=== PATIENT | male | born 1980 | race Caucasian/White ===

== ENCOUNTER 2018-01-05 10:55 | Emergency (ER) | payer OTHER ==
[~2018-01-05] VITALS: Ht 177.8 cm; Wt 236.0 kg
[~2018-01-05 10:55] MED LIST: ASPI325 PO; ASPI81CH PO; ASPI81EC PO; CLOP75 PO; COLC.6 PO; EFFIENT10 MG PO; HYDACE5 PO; Isosorbide Dini30 MG PO; LISI5 PO; METO50ER PO; Metoprolol Succ25 MG PO; Naprosyn500 MG PO; OXYACE5T PO; PENICILLIN V; ROSU10TA PO; ROSU5 PO; Toprol Xl25 MG PO; [UNRECOGNIZED DRUG - OTHER]
[2018-01-05 11:32] LABS: Source, Urine Clean Catch
[2018-01-05 11:35] LABS: Blood, Urine 1+ (Neg); Glucose Qualitative, Urine Neg (Neg); Ketones, Urine 1+ (Neg); Leukocyte Esterase, Urine 1+ (Neg); Nitrite, Urine Neg (Neg); Protein, Urine 1+ (Neg); Specific Gravity, Urine 1.025 (1.003-1.022); Urobilinogen, Urine 1+ (Normal)
[2018-01-05 11:43] LABS: BASOPHILS ABSOLUTE AUTO 0.04 K/mm3 (0.00-0.23); BASOPHILS PERCENT AUTO 1 % (0-2); EOSINOPHILS ABSOLUTE AUTO 0.09 K/mm3 (0.00-0.68); EOSINOPHILS PERCENT AUTO 1 % (0-6); Hematocrit 46.2 % (37.0-53.0); Hemoglobin 15.7 g/dL (13.5-17.5); IMMATURE GRAN ABSOLUTE AUTO 0.01 K/mm3 (0.00-0.10); IMMATURE GRAN PERCENT AUTO 0 % (0-1); LYMPHOCYTES ABSOLUTE AUTO 1.54 K/mm3 (0.84-5.20); LYMPHOCYTES PERCENT AUTO 22 % (21-46); MONOCYTES ABSOLUTE AUTO 0.42 K/mm3 (0.16-1.47); MONOCYTES PERCENT AUTO 6 % (4-13); Mean Corpuscular HGB 30.5 pg (26.0-34.0); Mean Corpuscular Volume 90 fL (80-100); Mean Platelet Volume 9.5 fL (9.1-12.4); NEUTROPHILS PERCENT AUTO 70 % (41-73); Platelet Count 253 K/mm3 (150-400); RDW Coefficient Variation 11.8 % (11.7-14.2); RDW Standard Deviation 38.7 fL (35.1-46.3); Red Blood Cell Count 5.15 M/mm3 (4.30-5.90)
[2018-01-05 11:43] LABS: Appearance, Urine Hazy (Clear); Bilirubin, Urine 1+ (Neg); Color, Urine Yellow (P-Yellow)
[2018-01-05 11:44] LABS: Bacteria Mod /hpf; Mucus Light (0-Heavy); Red Blood Cells, Urine 0-2 /hpf (0-2); Squamous Epithelial Cells Rare /hpf (Few); White Blood Cells, Urine 0-2 /hpf (0-5)
[2018-01-05 12:04] LABS: Troponin I <0.015 ng/mL (0.000-0.040)
[2018-01-05 12:07] LABS: Alanine Aminotransfer (ALT/SGP 32 U/L (12-78); Albumin, Blood 3.8 g/dL (3.4-5.0); Alk Phos 105 U/L (50-136); Anion Gap 9 mmol/L (6-16); Aspartate Aminotrans (AST/SGOT 14 U/L (12-37); Bilirubin, Total 0.4 mg/dL (0.1-1.0); Blood Urea Nitrogen 13 mg/dL (8-24); Bun/Creatinine Ratio 15.9 (12.0-20.0); CO2, Blood 21 mmol/L (21-32); Calcium, Blood 8.9 mg/dL (8.5-10.1); Chloride, Blood 109 mmol/L (98-108); Creatinine, Blood 0.82 mg/dL (0.60-1.20); Globulin, Blood 3.8 g/dL (2.2-4.0); Glomerular Filtration Rate >60 (60-); Glucose, Blood 122 mg/dL (70-99); Potassium, Blood 3.6 mmol/L (3.5-5.5); Sodium, Blood 139 mmol/L (136-145); Total Protein, Blood 7.6 g/dL (6.4-8.2)
== END 2018-01-05 13:25 | disposition home or self-care (01) ==
LOC: ER 10:55
PROVIDERS: Emergency Medicine
DX: R07.9 Chest pain, unspecified (principal); R06.00 Dyspnea, unspecified; I25.2 Old myocardial infarction; E78.00 Pure hypercholesterolemia, unspecified; Z79.82 Long term (current) use of aspirin; Z79.899 Other long term (current) drug therapy
CPT/HCPCS: 36415; 71046; 80053; 81001; 83880; 84484; 85025; 87086; 93005; 93010; 99284

== ENCOUNTER 2018-11-24 13:10 | Emergency (ER) | payer OTHER ==
[~2018-11-24] VITALS: Ht 177.8 cm; Wt 104.3 kg
[2018-11-24 13:54] LABS: BASOPHILS ABSOLUTE AUTO 0.03 K/mm3 (0.00-0.23); BASOPHILS PERCENT AUTO 0 % (0-2); EOSINOPHILS ABSOLUTE AUTO 0.18 K/mm3 (0.00-0.68); EOSINOPHILS PERCENT AUTO 2 % (0-6); Hematocrit 48.3 % (37.0-53.0); Hemoglobin 16.1 g/dL (13.5-17.5); IMMATURE GRAN ABSOLUTE AUTO 0.02 K/mm3 (0.00-0.10); IMMATURE GRAN PERCENT AUTO 0 % (0-1); LYMPHOCYTES ABSOLUTE AUTO 1.82 K/mm3 (0.84-5.20); LYMPHOCYTES PERCENT AUTO 25 % (21-46); MONOCYTES ABSOLUTE AUTO 0.48 K/mm3 (0.16-1.47); MONOCYTES PERCENT AUTO 7 % (4-13); Mean Corpuscular HGB Conc 33.3 g/dL (31.5-36.5); Mean Corpuscular Volume 90 fL (80-100); Mean Platelet Volume 9.6 fL (9.1-12.4); NEUTROPHILS ABSOLUTE AUTO 4.87 K/mm3 (1.96-9.15); NEUTROPHILS PERCENT AUTO 66 % (41-73); Platelet Count 260 K/mm3 (150-400); RDW Coefficient Variation 12.3 % (11.7-14.2); RDW Standard Deviation 40.1 fL (35.1-46.3); Red Blood Cell Count 5.36 M/mm3 (4.30-5.90)
[2018-11-24 14:23] LABS: Troponin I <0.015 ng/mL (0.000-0.040)
[2018-11-24 14:27] LABS: Alanine Aminotransfer (ALT/SGP 36 U/L (12-78); Albumin, Blood 3.9 g/dL (3.4-5.0); Alk Phos 121 U/L (50-136); Anion Gap 8 mmol/L (6-16); Aspartate Aminotrans (AST/SGOT 15 U/L (12-37); Bilirubin, Total 0.4 mg/dL (0.1-1.0); Blood Urea Nitrogen 11 mg/dL (8-24); Bun/Creatinine Ratio 11.5 (12.0-20.0); CO2, Blood 25 mmol/L (21-32); Calcium, Blood 9.2 mg/dL (8.5-10.1); Chloride, Blood 107 mmol/L (98-108); Creatinine, Blood 0.96 mg/dL (0.60-1.20); Globulin, Blood 4.1 g/dL (2.2-4.0); Glomerular Filtration Rate >60 (60-); Glucose, Blood 95 mg/dL (70-99); Potassium, Blood 3.9 mmol/L (3.5-5.5); Sodium, Blood 140 mmol/L (136-145)
== END 2018-11-24 16:30 | disposition home or self-care (01) ==
LOC: ER 13:10
PROVIDERS: Physician Assistant
DX: R07.2 Precordial pain (principal); F41.9 Anxiety disorder, unspecified; K21.9 Gastro-esophageal reflux disease without esophagitis; E78.5 Hyperlipidemia, unspecified; I25.10 Atherosclerotic heart disease of native coronary artery without angina pectoris; I25.2 Old myocardial infarction; Z79.82 Long term (current) use of aspirin; Z79.899 Other long term (current) drug therapy; Z87.891 Personal history of nicotine dependence
CPT/HCPCS: 36415; 71046; 80053; 84484; 85025; 93005; 93010; 99285-25

== ENCOUNTER 2024-04-27 15:02 | Emergency (ER) | payer OTHER ==
[~2024-04-27] VITALS: Ht 177.8 cm; Wt 90.7 kg
[~2024-04-27 15:02] MED LIST changes: +ONDA4ODT MM
[2024-04-27] MEDS ORDERED: Ondansetron HCl 2 MG / ML 2ML Vial IV ONE ×2 (15:30→19:40)
[2024-04-27 15:49] LABS: BASOPHILS ABSOLUTE AUTO 0.02 K/mm3 (0.00-0.23); BASOPHILS PERCENT AUTO 0 % (0-2); EOSINOPHILS PERCENT AUTO 0 % (0-6); Hematocrit 28.9 % (37.0-53.0); Hemoglobin 8.3 g/dL (13.5-17.5); IMMATURE GRAN ABSOLUTE AUTO 0.05 K/mm3 (0.00-0.10); IMMATURE GRAN PERCENT AUTO 0 % (0-1); LYMPHOCYTES ABSOLUTE AUTO 1.72 K/mm3 (0.84-5.20); LYMPHOCYTES PERCENT AUTO 12 % (21-46); MONOCYTES ABSOLUTE AUTO 1.34 K/mm3 (0.16-1.47); MONOCYTES PERCENT AUTO 9 % (4-13); Mean Corpuscular HGB 21.4 pg (26.0-34.0); Mean Corpuscular HGB Conc 28.7 g/dL (31.5-36.5); Mean Corpuscular Volume 75 fL (80-100); Mean Platelet Volume 9.5 fL (9.1-12.4); NEUTROPHILS ABSOLUTE AUTO 11.65 K/mm3 (1.96-9.15); NEUTROPHILS PERCENT AUTO 79 % (41-73); Platelet Count 447 K/mm3 (150-400); RDW Coefficient Variation 17.2 % (11.7-14.2); RDW Standard Deviation 45.9 fL (35.1-46.3); Red Blood Cell Count 3.87 M/mm3 (4.30-5.90); White Blood Cell Count 14.78 K/mm3 (4.00-11.30)
[2024-04-27 16:10] LABS: Albumin, Blood 3.3 g/dL (3.4-5.0); Albumin/Globulin Ratio 0.8 (0.8-1.8); Bilirubin, Total 0.5 mg/dL (0.1-1.0); Bun/Creatinine Ratio 15.3 (12.0-20.0); Calcium, Blood 8.9 mg/dL (8.5-10.1); Creatinine, Blood 0.79 mg/dL (0.60-1.20); Potassium, Blood 3.2 mmol/L (3.5-5.5); Total Protein, Blood 7.3 g/dL (6.4-8.2)
[2024-04-27 17:26] LABS: Chloride (POC) 100 mmol/L (98-108); Creatinine (POC) 0.8 mg/dL (0.8-1.3); Glucose (ISTAT POC) 111 mg/dL (70-99); Hemoglobin (POC) 9.2 g/dL (13.5-17.5); Potassium (POC) 3.1 mmol/L (3.5-5.5); Sodium (POC) 139 mmol/L (135-148); Total CO2 (POC) 24 mmol/L (21-32)
[2024-04-27] MEDS ORDERED: Potassium Chloride 20 MEQ TabCR PO ONE (18:10)
[2024-04-27] MEDS ORDERED: Lactated Ringer's 1,000 ML IV ONE (18:10)
[2024-04-27 18:32] LABS: International Normalized Ratio 1.13
[2024-04-27] MEDS ORDERED: Sod Ferric Gluc Complx/Sucrose 125 MG in NS 100 ML IV ONE (20:45)
[2024-04-27] MEDS ORDERED: ONDA4ODT MM (21:32)
[2024-04-27 22:00] VITALS: BP 117/89
== END 2024-04-27 22:05 | disposition home or self-care (01) ==
LOC: ER 15:02
PROVIDERS: Physician Assistant
DX: R10.13 Epigastric pain (principal); R11.2 Nausea with vomiting, unspecified; E87.6 Hypokalemia; D50.9 Iron deficiency anemia, unspecified; E78.5 Hyperlipidemia, unspecified; I25.10 Atherosclerotic heart disease of native coronary artery without angina pectoris; I25.2 Old myocardial infarction; F84.0 Autistic disorder; Z79.82 Long term (current) use of aspirin; Z79.899 Other long term (current) drug therapy
CPT/HCPCS: 74177; 80047; 80053; 83540; 83550; 83605; 83690; 85014; 85025; 85610; 85730; 96361; 96365-59; 96375; 96376; 99284-25; A9270; J2405; J2916; J7120; Q9967

== ENCOUNTER 2024-06-29 08:40 | Emergency (ER) | payer OTHER ==
[~2024-06-29] VITALS: Ht 177.8 cm; Wt 102.1 kg
[2024-06-29 09:29] LABS: BASOPHILS ABSOLUTE AUTO 0.04 K/mm3 (0.00-0.23); BASOPHILS PERCENT AUTO 0 % (0-2); EOSINOPHILS PERCENT AUTO 0 % (0-6); Hematocrit 30.9 % (37.0-53.0); Hemoglobin 8.4 g/dL (13.5-17.5); IMMATURE GRAN ABSOLUTE AUTO 0.12 K/mm3 (0.00-0.10); IMMATURE GRAN PERCENT AUTO 1 % (0-1); LYMPHOCYTES ABSOLUTE AUTO 2.11 K/mm3 (0.84-5.20); LYMPHOCYTES PERCENT AUTO 10 % (21-46); MONOCYTES ABSOLUTE AUTO 1.51 K/mm3 (0.16-1.47); MONOCYTES PERCENT AUTO 7 % (4-13); Mean Corpuscular HGB 19.7 pg (26.0-34.0); Mean Corpuscular HGB Conc 27.2 g/dL (31.5-36.5); Mean Corpuscular Volume 73 fL (80-100); Mean Platelet Volume 9.8 fL (9.1-12.4); NEUTROPHILS PERCENT AUTO 82 % (41-73); Platelet Count 490 K/mm3 (150-400); RDW Coefficient Variation 18.7 % (11.7-14.2); RDW Standard Deviation 48.5 fL (35.1-46.3); Red Blood Cell Count 4.26 M/mm3 (4.30-5.90); White Blood Cell Count 20.78 K/mm3 (4.00-11.30)
[2024-06-29] MEDS ORDERED: Pantoprazole Sodium 40 MG Injection IV ONE (09:30)
[2024-06-29] MEDS ORDERED: Ondansetron HCl 2 MG / ML 2ML Vial IV ONE (09:30)
[2024-06-29] MEDS ORDERED: Droperidol 5 mg/2 ml Vial IV ONE (09:35)
[2024-06-29] MEDS ORDERED: ARIPIPRAZOLE15 M3 PO (09:50)
[2024-06-29] MEDS ORDERED: DESVENLAFAXINE50 M3 PO (09:51)
[2024-06-29] MEDS ORDERED: BUSPIRONE HCL10 M6 PO (09:51)
[2024-06-29] MEDS ORDERED: ROSUVASTATIN CA40 MG PO (09:51)
[2024-06-29] MEDS ORDERED: PLAVIX75 MG PO (09:51)
[2024-06-29] MEDS ORDERED: EZETIMIBE10 M6 PO (09:51)
[2024-06-29] MEDS ORDERED: CARVEDILOL25 M9 PO (09:51)
[2024-06-29 09:53] LABS: Albumin, Blood 3.2 g/dL (3.4-5.0); Albumin/Globulin Ratio 0.9 (0.8-1.8); Bilirubin, Total 0.5 mg/dL (0.1-1.0); Bun/Creatinine Ratio 37.4 (12.0-20.0); Calcium, Blood 9.1 mg/dL (8.5-10.1); Creatinine, Blood 0.94 mg/dL (0.60-1.20); Globulin, Blood 3.6 g/dL (2.2-4.0); Magnesium, Blood 1.5 mg/dL (1.6-2.4); Potassium, Blood 3.7 mmol/L (3.5-5.5); Total Protein, Blood 6.8 g/dL (6.4-8.2)
[2024-06-29 09:56] LABS: International Normalized Ratio 1.29; Prothrombin Time Results 13.5 Sec (9.7-11.5)
[2024-06-29] MEDS ORDERED: NS 1,000 ML IV SCH ×2 (10:10→11:15)
[2024-06-29] MEDS ORDERED: Magnesium Sulf 2 GM/Water 50ML 50 ML IV ONE (11:00)
[2024-06-29] MEDS ORDERED: Mag Hydrox/AL Hydrox/Simeth 30 ML UDC PO ONE (12:00)
[2024-06-29] MEDS ORDERED: Aspirin 325 MG Tab PO ONE (12:25)
[2024-06-29 15:25] VITALS: BP 118/72
== END 2024-06-29 15:45 | disposition left against medical advice (07) ==
LOC: ER 08:40
PROVIDERS: Student in an Organized Health Care Education/Training Program
DX: R11.2 Nausea with vomiting, unspecified (principal); F12.90 Cannabis use, unspecified, uncomplicated; R79.89 Other specified abnormal findings of blood chemistry; E83.42 Hypomagnesemia; R00.0 Tachycardia, unspecified; K21.9 Gastro-esophageal reflux disease without esophagitis; E78.5 Hyperlipidemia, unspecified; Z79.82 Long term (current) use of aspirin; Z79.899 Other long term (current) drug therapy
CPT/HCPCS: 71046; 80053; 82010; 83690; 83735; 84484; 85025; 85610; 85730; 93005; 93010; 96361; 96365; 96366; 96375; 99285-25; A9270; G0378; J1790; J2405; J2470; J3475; J7030

== ENCOUNTER 2024-07-20 11:37 | Inpatient (IN) | payer OTHER ==
[~2024-07-20] VITALS: Ht 177.8 cm; Wt 63.4 kg
[~2024-07-20 11:37] MED LIST changes: +ARIPIPRAZOLE15 M3 PO; +BUSPIRONE HCL10 M6 PO; +CARVEDILOL25 M9 PO; +DESVENLAFAXINE50 M3 PO; +EZETIMIBE10 M6 PO; +PLAVIX75 MG PO; +ROSUVASTATIN CA40 MG PO
[2024-07-20 12:30] LABS: Albumin, Blood 2.9 g/dL (3.4-5.0); Albumin/Globulin Ratio 0.7 (0.8-1.8); Bilirubin, Total 0.5 mg/dL (0.1-1.0); Bun/Creatinine Ratio 14.4 (12.0-20.0); Calcium, Blood 8.8 mg/dL (8.5-10.1); Creatinine, Blood 0.63 mg/dL (0.60-1.20); Globulin, Blood 3.9 g/dL (2.2-4.0); Potassium, Blood 4.9 mmol/L (3.5-5.5); Total Protein, Blood 6.8 g/dL (6.4-8.2)
[2024-07-20 12:37] LABS: BASOPHILS ABSOLUTE AUTO 0.03 K/mm3 (0.00-0.23); BASOPHILS PERCENT AUTO 0 % (0-2); EOSINOPHILS ABSOLUTE AUTO 0.02 K/mm3 (0.00-0.68); EOSINOPHILS PERCENT AUTO 0 % (0-6); Hematocrit 25.8 % (37.0-53.0); Hemoglobin 6.7 g/dL (13.5-17.5); IMMATURE GRAN ABSOLUTE AUTO 0.04 K/mm3 (0.00-0.10); IMMATURE GRAN PERCENT AUTO 0 % (0-1); LYMPHOCYTES PERCENT AUTO 14 % (21-46); MONOCYTES ABSOLUTE AUTO 0.46 K/mm3 (0.16-1.47); MONOCYTES PERCENT AUTO 4 % (4-13); Mean Corpuscular HGB 18.7 pg (26.0-34.0); Mean Corpuscular Volume 72 fL (80-100); Mean Platelet Volume 10.7 fL (9.1-12.4); NEUTROPHILS ABSOLUTE AUTO 8.52 K/mm3 (1.96-9.15); NEUTROPHILS PERCENT AUTO 81 % (41-73); Platelet Count 584 K/mm3 (150-400); RDW Coefficient Variation 18.9 % (11.7-14.2); RDW Standard Deviation 49.2 fL (35.1-46.3); Red Blood Cell Count 3.59 M/mm3 (4.30-5.90); White Blood Cell Count 10.57 K/mm3 (4.00-11.30)
[2024-07-20] MEDS ORDERED: Ondansetron HCl 2 MG / ML 2ML Vial IV ONE (13:00)
[2024-07-20] MEDS ORDERED: Morphine Sulfate 4 MG/1 ML Injection IV ONE ×2 (13:05→16:20)
[2024-07-20] MEDS ORDERED: Pantoprazole Sodium 40 MG Injection IV ONE (13:05)
[2024-07-20] MEDS ORDERED: NS 1,000 ML IV SCH (13:05)
[2024-07-20] MEDS ORDERED: FLU VACC TS2024-25(6MOS UP)/PF 45 MCG/0.5 ML SYRINGE IM SCH (16:55)
[2024-07-20] MEDS ORDERED: Ondansetron HCl 2 MG / ML 2ML Vial IV PRN (17:10)
[2024-07-20 18:07] VITALS: BP 138/93
--- NOTE | 2024-07-20 18:36 | NUR ---
PATIENT FROM THE ER LATE THIS AFTERNOON. HE IS AO X 4 ON ARRIVAL. PRBC X 1 UNIT INFUSING ON ARRIVAL. PAITENT IN STREET CLOTHES. DECISION MOJGANOT DRESS OUT IN HOSPITAL GOWN UNTIL BLOOD DONE INFUSING. VITAL SIGNS ARE STABLE AND WNL. HE IS NOT FEBRILE. HGB IS ORDERED AND WILL BE DONE WHEN BLOOD FINISHED. PER REPORT PATIENT STAERTED HAVING PAIN X 1 DAY AGO. HE FELT LIKE IT WAS THE SAME KIND OF PAIN WHEN HE REQUIRED STENTS. HE CAME TO ER TODAY AFTER HE STARTED VOMITTING AND PER PATIENT HE NOTED IT WAS BLOODY. NO EMESIS SINCE ARRIVAL TO MED FLOOR. HIS LUNGS ARE CLEAR AND NO SKIN ISSUES ARE NOTED. WILL REMAIN AVAILABLE FOR THIS PATIENT FOR ANY WANTS UNTIL REPORT AND HAND OFF TO NOC SHIFT RN.
[2024-07-20 19:45] VITALS: BP 113/99
[2024-07-20 20:30] LABS: Hematocrit 27.6 % (37.0-53.0); Hemoglobin 7.7 g/dL (13.5-17.5)
[2024-07-20 20:46] LABS: International Normalized Ratio 1.07; Prothrombin Time Results 11.4 Sec (9.7-11.5)
[2024-07-20] MEDS ORDERED: BusPIRone HCl 10 MG Tab PO SCH (21:00)
--- NOTE | 2024-07-20 23:34 | NUR ---
PT STATUS PT REQUESTS A SHOWER HE STATES IT IS THE ONLY THING THAT HELPS HIM FEEL BETTER. HE IS REFUSING NAUSEA MEDS AT THIS TIME. I HAVE WRAPPED AND PROTECTED HIS IV FOR NOW.
[2024-07-21 03:18] VITALS: BP 114/82
--- NOTE | 2024-07-21 03:52 | NUR ---
CALLED HOSPITALIST PT IN HIS ROOM CRYING OUT IN PAIN. NO PAIN MEDICATION IN EMAR. CALLED HOSPITALIST. NEW MEDICATION ORDER IN EMAR.
[2024-07-21] MEDS ORDERED: FentaNYL Citrate 50 MCG/ML 2 ML Injection IV PRN (03:55)
--- NOTE | 2024-07-21 04:27 | NUR ---
SHIFT SUMMARY ADMITTED FOR GI BLEED. FULL CODE. HE HAS BEEN NAUSEOUS THIS SHIFT. MEDICATION GIVEN FOR PAIN AND NAUSEA. HE IS NPO. TELEMETRY: NSR @ 90 BPM. HOSPITALIST NOTIFIED OF 2ND DEGREE HB FOR ONE BEAT - PER SWATCH CLERK. HE IS INDEPENDENT IN ROOM. ON RA. MX H&H AND OTHER LABS. 1 U OF PRBC'S GIVEN ON PREVIOUS SHIFT. HE IS A&O X4. 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
[2024-07-21 04:33] LABS: Hematocrit 26.3 % (37.0-53.0); Hemoglobin 7.4 g/dL (13.5-17.5)
[2024-07-21] MEDS ORDERED: Pantoprazole Sodium 40 MG Injection IV SCH (06:00)
[2024-07-21 07:26] LABS: BASOPHILS ABSOLUTE AUTO 0.03 K/mm3 (0.00-0.23); BASOPHILS PERCENT AUTO 0 % (0-2); EOSINOPHILS PERCENT AUTO 0 % (0-6); Hemoglobin 7.4 g/dL (13.5-17.5); IMMATURE GRAN ABSOLUTE AUTO 0.05 K/mm3 (0.00-0.10); IMMATURE GRAN PERCENT AUTO 0 % (0-1); LYMPHOCYTES ABSOLUTE AUTO 1.77 K/mm3 (0.84-5.20); LYMPHOCYTES PERCENT AUTO 15 % (21-46); MONOCYTES ABSOLUTE AUTO 0.61 K/mm3 (0.16-1.47); MONOCYTES PERCENT AUTO 5 % (4-13); Mean Corpuscular HGB 20.3 pg (26.0-34.0); Mean Corpuscular HGB Conc 27.4 g/dL (31.5-36.5); Mean Corpuscular Volume 74 fL (80-100); Mean Platelet Volume 10.6 fL (9.1-12.4); NEUTROPHILS ABSOLUTE AUTO 9.61 K/mm3 (1.96-9.15); NEUTROPHILS PERCENT AUTO 80 % (41-73); Platelet Count 540 K/mm3 (150-400); RDW Coefficient Variation 20.1 % (11.7-14.2); RDW Standard Deviation 53.7 fL (35.1-46.3); Red Blood Cell Count 3.65 M/mm3 (4.30-5.90); White Blood Cell Count 12.07 K/mm3 (4.00-11.30)
[2024-07-21 07:35] VITALS: BP 126/89
[2024-07-21 07:46] LABS: Bun/Creatinine Ratio 9.3 (12.0-20.0); Calcium, Blood 8.5 mg/dL (8.5-10.1); Creatinine, Blood 0.75 mg/dL (0.60-1.20); Potassium, Blood 3.8 mmol/L (3.5-5.5)
[2024-07-21] MEDS ORDERED: Carvedilol 6.25 MG Tab PO SCH (08:00)
[2024-07-21] MEDS ORDERED: Rosuvastatin Calcium 10 MG Tab PO SCH ×2 (09:00→21:00)
[2024-07-21] MEDS ORDERED: ARIPiprazole 5 MG Tab PO SCH ×2 (09:00→21:00)
[2024-07-21] MEDS ORDERED: Ezetimibe 10 MG Tab PO SCH ×2 (09:00→21:00)
[2024-07-21] MEDS ORDERED: Venlafaxine HCl 75 MG CapCR PO SCH ×2 (09:00→21:00)
--- NOTE | 2024-07-21 09:50 | NUR ---
PT REMOVED TELE BOX PT STATED THAT HE WOULD NOT PUT IT BACK ON UNTIL HE KNOWS THE PLAN OF CARE. DR. GONZALEZ SPOKE WITH PT THIS MORNING. PT IS UPSET AND WANTS TO EAT AND DRINK. PT ADVISED THAT THE PROCEDURE COULD HAPPEN ANY TIME IT IS NOT SCHEDULED. PT STATED THAT HE IS VERY UNHAPPY AND WANTS TO TALK TO DR. HE STATED THAT HE IS TIRED OF WAITING AND WILL LEAVE IF THE PROCEDURE IS STARTED IMMEDIATELY. PT STATES THAT HE WANTS TO HEAR THE INFORMATION FROM . NOT THE RN. DR AQUINO NOTIFIED AND WILL COME SEE THE PT AT BEDSIDE.
[2024-07-21] MEDS ORDERED: D5W-NS 1,000 ML IV SCH (11:20)
--- NOTE | 2024-07-21 12:07 | NUR ---
SHIFT ASSESMENT FROZEN, UNABLE TO COMPLETE. PT DENIES CHEST PAIN OR PRESSURE, ABLE TO MAKE NEEDS KNOWN
[2024-07-21 13:48] LABS: Hematocrit 25.6 % (37.0-53.0); Hemoglobin 7.2 g/dL (13.5-17.5)
[2024-07-21] MEDS ORDERED: FERROUS GLUCON324 M7 PO (14:04)
[2024-07-21] MEDS ORDERED: Lactated Ringer's 1,000 ML IV SCH (14:55)
[2024-07-21] MEDS ORDERED: Lidocaine HCl 4% 5 ML SDA ONE (15:19)
[2024-07-21] MEDS ORDERED: propofoL 40 ML IV ONE (15:19)
--- NOTE | 2024-07-21 15:22 | NUR ---
PT TO [facility]IA [facility] FROM ROOM [address] GONZALEZ. CHART REVIEWED. PLAN OF CARE DISCUSSED WITH PT; QUESTIONS ANSWERED. PT STATES NO FOOD SINCE FRIDAY. SIP OF WATER WITH PILLS TODAY.
[2024-07-21 15:24] VITALS: BP 127/82
--- NOTE | 2024-07-21 15:31 | NUR ---
PT TO SDS WITH 20G IV IN LEFT HAND
--- NOTE | 2024-07-21 15:47 | NUR ---
07/21/24 1547 Mariza Palm 1541 History, Chart, Medications and Allergies reviewed before start of procedure.MONITOR INTACT WITH CONTINUOUS PULSE OXIMETRY, CONTINUOUS END TITAL CO2, AND INTERMITTENT BLOOD PRESSURE.3-LEAD EKG REVIEWED WITH PHYSICIAN PRIOR TO START OF PROCEDURE.O2 VIA POM INTACT THROUGHOUT SEDATION/PROCEDURE. LIDO 4% USED FOR NUMBING BY . Bite Block Placed-SEE ANESTHESIA RECORD.
[2024-07-21] MEDS ORDERED: Midazolam HCl 1MG / ML 2ML Vial ONE (15:48)
--- NOTE | 2024-07-21 16:00 | NUR ---
LIDO 4% USED BY DR. NAILS FOR NUMBING THE THROAT PRIOR TO EGD. RN MADE AWARE TO CHECK PT GAG REFLEX PRIOR TO ALLOWING PO INTAKE.
[2024-07-21] MEDS ORDERED: Prochlorperazine Edisylate 10 mg Vial IV PRN (16:10)
[2024-07-21 16:20] VITALS: BP 102/80
--- NOTE | 2024-07-21 17:01 | NUR ---
PT IS BACK FROM EGD, PER REPORT, TOLORATED WELL. INFORMED PT HE HAS BEEN ORDERED A CLEAR LIQUID DIET. PT STATES HE WILL HAVE SOME SOLID FOOD "NO MATTER WHAT ANYONE SAYS" HE STATED THAT HE WILL HAVE SOMEONE BRING IN FOOD IF THAT IS WHAT HE HAS TO DO. PT ALSO STATED THAT HE WILL NOT WAIT UNTIL TOMORROW TO FIND OUT RESULTS, HE WILL LEAVE. GAG REFLEX PRESENT POST PROCEDURE. ALERT AND ORIENTED, PER PT FEELING A LITTLE GROGGY. INDEPENDENT IN THE ROOM, ABLE TO MAKE NEEDS KNOWN. R/A. NORMAL SINUS ON TELE.
[2024-07-21 17:16] VITALS: BP 126/82
--- NOTE | 2024-07-21 17:45 | NUR ---
DR. AQUINO NOTIFIED OF PT DEMAND TO EAT SOLID FOOD.
--- NOTE | 2024-07-21 18:05 | NUR ---
PT REFUSED COREG.
--- NOTE | 2024-07-21 18:31 | NUR ---
OFFERED CLEAR LIQUID DIET TRAY AGAIN TO PT. PT REFUSED AND STATED THAT HE HAS SOMEONE BRINGING IN FOOD FOR HIM. EDUCATED PT AGAIN AND ADVISED AGAINST SOLID FOOD RECOMMEDED BY HOSPITALIST DR. AQUINO AND SPECIALIST DR. GONZALEZ. PT STATED THAT HE DOES CARE. HE WILL BE EATING SOLID FOOD.
--- NOTE | 2024-07-21 18:39 | NUR ---
PT IS EATING SOLID FOOD BROUGHT IN BY VISITOR, THIS IS AGAINST MEDICAL ADVICE FROM HOSPITALIST AND SPECIALIST. PT VERBALIZED UNDERSTANDING BUT DECLINES TO FOLLOW MEDICAL ADVICE.
[2024-07-21 19:23] VITALS: BP 120/77
--- NOTE | 2024-07-21 20:54 | NUR ---
PT STATUS PT IS REFUSING CARE UNTIL 7 AM. HE STATES HE HAS NOT SLEPT SINCE FRIDAY AND HE NEEDS HIS SLEEP. HE STATED THIS IN FRONT OF HIS MOTHER WHO WAS IN THE ROOM AT BEDSIDE. HE REFUSED MEDS AND LABS.
--- NOTE | 2024-07-21 23:32 | NUR ---
PT STATUS TELEMETRY CALLED AND STATED THE PT'S BATTERIES HAD BEEN REMOVED. I ENTERED THE ROOM AND FOUND THE TELEMETRY ON THE FLOOR WITH THE BATTERY COVER OFF AND THE BATTERIES SCATTERED. I ASKED THE PT WHAT HAPPENED AND HE STATED, "I TOOK IT OFF FOR A REASON, I DON'T WANT TO WEAR IT ANYMORE." I CALLED THE HOSPITALIST AND INFORMED HIM THAT THE PT IS REFUSING TO WEAR TELEMETRY.
--- NOTE | 2024-07-22 04:15 | NUR ---
SHIFT SUMMARY ADMITTED FOR GI BLEED, N/V. FULL CODE. EGD SCOPE PERFORMED ON PREVIOUS SHIFT. CLEAR LIQUID DIET - PT IS NONCOMPLIANT. PT HAS REFUSED VITALS, LABS, AND MEDICATIONS THIS SHIFT. HE REMOVED HIS TELEMETRY THIS SHIFT AND REFUSED TO WEAR IT AGAIN. ON RA, INDEPENDENT. DR. GONZALEZ PERFORMED THE SCOPE.
[2024-07-22 07:31] VITALS: BP 114/77
--- NOTE | 2024-07-22 08:49 | NUR ---
PT REFUSED ASSESMENT. DID REPORT SOME EPIGASTRIC PAIN BUT REFUSED PAIN MEDICATIONS. PT EATING SOLID FOOD AGAINST MEDICAL ADVICE. THIS RN ASKED IF THERE WAS ANYTHING I COULD DO FOR HIM. PT STATED "UNFORTUNATELY NOT" DR. GONZALEZ AT BEDSIDE TALKING WITH PT THIS MORINING.
[2024-07-22] MEDS ORDERED: PANT40 PO (12:30)
--- NOTE | 2024-07-22 12:54 | NUR ---
PT DISCHARGED HOME. DISCUSSED DISCHARGE INSTRUCTIONS WITH PT. EMPHASIZED IMPORTANCE OF LIQUID DIET FOR 48 HOURS, AND NOT BLOOD THINNERS FOR 48 HOURS. PT VERBALIZED UNDERSTANDING.
== END 2024-07-22 12:53 | disposition home or self-care (01) | DRG 369 ==
LOC: ER 11:37 → MEDS 16:53
PROVIDERS: Internal Medicine; Physician Assistant; Student in an Organized Health Care Education/Training Program; ADMIT Internal Medicine
PROC: 30233N1 Transfusion of Nonautologous Red Blood Cells into Peripheral Vein, Percutaneous Approach (ICD-10-PCS; principal; 2024-07-20)
PROC: 0DJ08ZZ Inspection of Upper Intestinal Tract, Via Natural or Artificial Opening Endoscopic (ICD-10-PCS; 2024-07-21)
DX: K22.6 Gastro-esophageal laceration-hemorrhage syndrome (principal); D62 Acute posthemorrhagic anemia; K21.9 Gastro-esophageal reflux disease without esophagitis; E78.5 Hyperlipidemia, unspecified; K22.11 Ulcer of esophagus with bleeding; R07.89 Other chest pain; F41.8 Other specified anxiety disorders; F25.9 Schizoaffective disorder, unspecified; G47.33 Obstructive sleep apnea (adult) (pediatric); I25.10 Atherosclerotic heart disease of native coronary artery without angina pectoris; Z91.148 Patient's other noncompliance with medication regimen for other reason; I25.2 Old myocardial infarction; Z98.890 Other specified postprocedural states; Z88.8 Allergy status to other drugs, medicaments and biological substances; Z79.02 Long term (current) use of antithrombotics/antiplatelets; Z79.82 Long term (current) use of aspirin; Z79.899 Other long term (current) drug therapy
CPT/HCPCS: 36415; 36430; 71046; 74177; 80048; 80053; 82272; 83690; 83880; 84484; 85014; 85018; 85025; 85379; 85610; 85730; 86850; 86900; 86901; 86923; 93005; 93010; 96361; 96374-59; 96375; 96376; 99285-25; J2001; J2250; J2270; J2405; J2470; J2704; J3010; J7042; J7120; P9016; Q9967

== ENCOUNTER 2024-08-27 21:58 | Emergency (ER) | payer OTHER ==
[~2024-08-27] VITALS: Ht 177.8 cm; Wt 88.0 kg
[~2024-08-27 21:58] MED LIST changes: +FERROUS GLUCON324 M7 PO; +PANT40 PO
[2024-08-27 23:23] LABS: BASOPHILS ABSOLUTE AUTO 0.03 K/mm3 (0.00-0.23); BASOPHILS PERCENT AUTO 0 % (0-2); EOSINOPHILS ABSOLUTE AUTO 0.01 K/mm3 (0.00-0.68); EOSINOPHILS PERCENT AUTO 0 % (0-6); Hematocrit 27.8 % (37.0-53.0); Hemoglobin 7.7 g/dL (13.5-17.5); IMMATURE GRAN ABSOLUTE AUTO 0.03 K/mm3 (0.00-0.10); IMMATURE GRAN PERCENT AUTO 0 % (0-1); LYMPHOCYTES ABSOLUTE AUTO 1.27 K/mm3 (0.84-5.20); LYMPHOCYTES PERCENT AUTO 13 % (21-46); MONOCYTES ABSOLUTE AUTO 0.89 K/mm3 (0.16-1.47); MONOCYTES PERCENT AUTO 9 % (4-13); Mean Corpuscular HGB 18.8 pg (26.0-34.0); Mean Corpuscular HGB Conc 27.7 g/dL (31.5-36.5); Mean Corpuscular Volume 68 fL (80-100); Mean Platelet Volume 10.1 fL (9.1-12.4); NEUTROPHILS ABSOLUTE AUTO 7.87 K/mm3 (1.96-9.15); NEUTROPHILS PERCENT AUTO 78 % (41-73); Platelet Count 360 K/mm3 (150-400); RDW Coefficient Variation 19.3 % (11.7-14.2); RDW Standard Deviation 46.6 fL (35.1-46.3)
[2024-08-27 23:51] LABS: Albumin, Blood 3.6 g/dL (3.4-5.0); Bilirubin, Total 0.6 mg/dL (0.1-1.0); Bun/Creatinine Ratio 17.1 (12.0-20.0); Calcium, Blood 9.2 mg/dL (8.5-10.1); Creatinine, Blood 0.7 mg/dL (0.60-1.20); Globulin, Blood 3.7 g/dL (2.2-4.0); Potassium, Blood 3.4 mmol/L (3.5-5.5); Total Protein, Blood 7.3 g/dL (6.4-8.2)
[2024-08-28] MEDS ORDERED: Droperidol 5 mg/2 ml Vial IV ONE (00:40)
[2024-08-28] MEDS ORDERED: Famotidine 10 MG/ML 2ML Vial IV ONE (00:40)
[2024-08-28] MEDS ORDERED: FAMO20 PO (01:19)
[2024-08-28] MEDS ORDERED: ONDA4ODT MM (01:19)
[2024-08-28 01:30] VITALS: BP 130/91
== END 2024-08-28 01:40 | disposition home or self-care (01) ==
LOC: ER 21:58
PROVIDERS: Emergency Medicine
DX: R11.2 Nausea with vomiting, unspecified (principal); Z88.8 Allergy status to other drugs, medicaments and biological substances; Z79.899 Other long term (current) drug therapy; Z79.82 Long term (current) use of aspirin; K21.9 Gastro-esophageal reflux disease without esophagitis; E78.5 Hyperlipidemia, unspecified
CPT/HCPCS: 80053; 83690; 85025; 96374; 96375; 99284; J1790

== ENCOUNTER 2024-10-03 20:49 | Emergency (ER) | payer OTHER ==
[~2024-10-03] VITALS: Ht 177.8 cm; Wt 88.5 kg
[~2024-10-03 20:49] MED LIST changes: +FAMO20 PO
[2024-10-03 21:05] VITALS: BP 156/89
[2024-10-03] MEDS ORDERED: Nitroglycerin 0.4 MG SUBL SL PRN (21:05)
[2024-10-03] MEDS ORDERED: Aspirin 325 MG Tab PO ONE (21:05)
[2024-10-03] MEDS ORDERED: Ondansetron HCl 2 MG / ML 2ML Vial IV ONE (21:10)
[2024-10-03 21:39] LABS: BASOPHILS ABSOLUTE AUTO 0.04 K/mm3 (0.00-0.23); BASOPHILS PERCENT AUTO 0 % (0-2); EOSINOPHILS PERCENT AUTO 0 % (0-6); Hematocrit 39.7 % (37.0-53.0); IMMATURE GRAN ABSOLUTE AUTO 0.03 K/mm3 (0.00-0.10); IMMATURE GRAN PERCENT AUTO 0 % (0-1); LYMPHOCYTES ABSOLUTE AUTO 1.31 K/mm3 (0.84-5.20); LYMPHOCYTES PERCENT AUTO 13 % (21-46); MONOCYTES ABSOLUTE AUTO 0.56 K/mm3 (0.16-1.47); MONOCYTES PERCENT AUTO 6 % (4-13); Mean Corpuscular HGB 20.5 pg (26.0-34.0); Mean Corpuscular HGB Conc 27.7 g/dL (31.5-36.5); Mean Corpuscular Volume 74 fL (80-100); Mean Platelet Volume 10.2 fL (9.1-12.4); NEUTROPHILS ABSOLUTE AUTO 8.33 K/mm3 (1.96-9.15); NEUTROPHILS PERCENT AUTO 81 % (41-73); Platelet Count 359 K/mm3 (150-400); RDW Standard Deviation 58.2 fL (35.1-46.3); Red Blood Cell Count 5.36 M/mm3 (4.30-5.90); White Blood Cell Count 10.27 K/mm3 (4.00-11.30)
[2024-10-03] MEDS ORDERED: Ondansetron HCl 2 MG / ML 2ML Vial ONE (21:46)
[2024-10-03 22:03] LABS: Albumin, Blood 3.8 g/dL (3.4-5.0); Bilirubin, Total 0.5 mg/dL (0.1-1.0); Bun/Creatinine Ratio 11.4 (12.0-20.0); Calcium, Blood 9.4 mg/dL (8.5-10.1); Creatinine, Blood 0.79 mg/dL (0.60-1.20); Globulin, Blood 3.8 g/dL (2.2-4.0); Potassium, Blood 3.6 mmol/L (3.5-5.5); Total Protein, Blood 7.6 g/dL (6.4-8.2)
[2024-10-03 22:10] LABS: International Normalized Ratio 1.06; Prothrombin Time Results 11.3 Sec (9.7-11.5)
[2024-10-03] MEDS ORDERED: Mag Hydrox/AL Hydrox/Simeth 30 ML UDC PO ONE (22:40)
[2024-10-03] MEDS ORDERED: Pantoprazole Sodium 40 MG Injection IV ONE (22:40)
[2024-10-03] MEDS ORDERED: Droperidol 5 mg/2 ml Vial IV ONE (22:55)
[2024-10-04] MEDS ORDERED: SUCR1 PO (01:19)
== END 2024-10-04 01:32 | disposition home or self-care (01) ==
LOC: ER 20:49
PROVIDERS: Emergency Medicine
DX: R07.9 Chest pain, unspecified (principal); K21.9 Gastro-esophageal reflux disease without esophagitis; G47.33 Obstructive sleep apnea (adult) (pediatric); E78.5 Hyperlipidemia, unspecified; Z87.19 Personal history of other diseases of the digestive system; Z87.891 Personal history of nicotine dependence; Z79.899 Other long term (current) drug therapy; Z88.8 Allergy status to other drugs, medicaments and biological substances
CPT/HCPCS: 71045; 80053; 84484; 85025; 85610; 85730; 93005; 93010; 96374; 96375; 99285-25; A9270; J1790; J2405; J2470

== ENCOUNTER 2024-10-14 21:00 | Emergency (ER) | payer OTHER ==
[~2024-10-14] VITALS: Ht 177.8 cm; Wt 88.0 kg
[~2024-10-14 21:00] MED LIST changes: +SUCR1 PO
[2024-10-14 21:50] LABS: BASOPHILS ABSOLUTE AUTO 0.01 K/mm3 (0.00-0.23); BASOPHILS PERCENT AUTO 0 % (0-2); EOSINOPHILS PERCENT AUTO 0 % (0-6); Hemoglobin 10.1 g/dL (13.5-17.5); IMMATURE GRAN ABSOLUTE AUTO 0.03 K/mm3 (0.00-0.10); IMMATURE GRAN PERCENT AUTO 0 % (0-1); LYMPHOCYTES ABSOLUTE AUTO 0.92 K/mm3 (0.84-5.20); LYMPHOCYTES PERCENT AUTO 10 % (21-46); MONOCYTES ABSOLUTE AUTO 1.42 K/mm3 (0.16-1.47); MONOCYTES PERCENT AUTO 15 % (4-13); Mean Corpuscular HGB 21.7 pg (26.0-34.0); Mean Corpuscular HGB Conc 30.6 g/dL (31.5-36.5); Mean Corpuscular Volume 71 fL (80-100); Mean Platelet Volume 9.5 fL (9.1-12.4); NEUTROPHILS ABSOLUTE AUTO 6.89 K/mm3 (1.96-9.15); NEUTROPHILS PERCENT AUTO 74 % (41-73); Platelet Count 252 K/mm3 (150-400); RDW Coefficient Variation 21.5 % (11.7-14.2); RDW Standard Deviation 54.4 fL (35.1-46.3); Red Blood Cell Count 4.65 M/mm3 (4.30-5.90); White Blood Cell Count 9.27 K/mm3 (4.00-11.30)
[2024-10-14 22:13] LABS: Albumin, Blood 3.1 g/dL (3.4-5.0); Albumin/Globulin Ratio 0.8 (0.8-1.8); Bilirubin, Total 0.8 mg/dL (0.1-1.0); Creatinine, Blood 0.9 mg/dL (0.60-1.20); Globulin, Blood 4.1 g/dL (2.2-4.0); Potassium, Blood 3.2 mmol/L (3.5-5.5); Total Protein, Blood 7.2 g/dL (6.4-8.2)
[2024-10-14 22:20] VITALS: BP 139/84
[2024-10-15] MEDS ORDERED: Mag Hydrox/AL Hydrox/Simeth 30 ML UDC PO ONE (00:15)
[2024-10-15] MEDS ORDERED: Pantoprazole Sodium 40 MG Injection IV ONE (00:15)
[2024-10-15] MEDS ORDERED: PANT40 PO (00:17)
[2024-10-15] MEDS ORDERED: ALMACONE SUSPE355 ML PO (00:17)
== END 2024-10-17 00:43 | disposition home or self-care (01) ==
LOC: ER 21:00
PROVIDERS: Student in an Organized Health Care Education/Training Program
DX: K92.0 Hematemesis (principal); G47.33 Obstructive sleep apnea (adult) (pediatric); K21.9 Gastro-esophageal reflux disease without esophagitis; E78.5 Hyperlipidemia, unspecified; Z87.891 Personal history of nicotine dependence; Z79.02 Long term (current) use of antithrombotics/antiplatelets; Z79.899 Other long term (current) drug therapy; Z88.8 Allergy status to other drugs, medicaments and biological substances
CPT/HCPCS: 80053; 85025; 86850; 86900; 86901; 93005; 93010; 96374; 99284-25; A9270; J2470

== ENCOUNTER 2024-10-19 11:07 | Day surgery (SDC) | payer OTHER ==
[~2024-10-19] VITALS: Ht 177.8 cm; Wt 84.8 kg
[~2024-10-19 11:07] MED LIST changes: +ALMACONE SUSPE355 ML PO; +Lactated Ringer's 1,000 ML IV ONE
[2024-10-19] MEDS ORDERED: Lactated Ringer's 1,000 ML IV ONE (11:50)
[2024-10-19] MEDS ORDERED: propofoL 50 ML IV ONE (12:41)
[2024-10-19 13:19] VITALS: BP 108/62
== END 2024-10-19 13:30 | disposition home or self-care (01) ==
LOC: ORSCSDS 11:07
PROVIDERS: Internal Medicine Gastroenterology
PROC: 0DB98ZX Excision of Duodenum, Via Natural or Artificial Opening Endoscopic, Diagnostic (ICD-10-PCS; principal; 2024-10-19 13:30)
PROC: 0DB48ZX Excision of Esophagogastric Junction, Via Natural or Artificial Opening Endoscopic, Diagnostic (ICD-10-PCS; principal; 2024-10-19 13:30)
PROC: 0DBP8ZX Excision of Rectum, Via Natural or Artificial Opening Endoscopic, Diagnostic (ICD-10-PCS; principal; 2024-10-19 13:30)
PROC: 0DB58ZX Excision of Esophagus, Via Natural or Artificial Opening Endoscopic, Diagnostic (ICD-10-PCS; principal; 2024-10-19 13:30)
DX: D50.0 Iron deficiency anemia secondary to blood loss (chronic) (principal); Z87.19 Personal history of other diseases of the digestive system; R13.10 Dysphagia, unspecified; R11.2 Nausea with vomiting, unspecified; K29.80 Duodenitis without bleeding; D12.8 Benign neoplasm of rectum; I25.2 Old myocardial infarction; Z79.02 Long term (current) use of antithrombotics/antiplatelets; K21.9 Gastro-esophageal reflux disease without esophagitis; G47.33 Obstructive sleep apnea (adult) (pediatric); F41.9 Anxiety disorder, unspecified; F12.929 Cannabis use, unspecified with intoxication, unspecified; E78.5 Hyperlipidemia, unspecified; I10 Essential (primary) hypertension; F25.9 Schizoaffective disorder, unspecified; Z79.899 Other long term (current) drug therapy
CPT/HCPCS: 88305; 88312; J2704; J7120

== ENCOUNTER 2025-01-07 07:49 | Day surgery (SDC) | payer OTHER ==
[~2025-01-07] VITALS: Ht 177.8 cm; Wt 87.5 kg
[~2025-01-07 07:49] MED LIST changes: -Lactated Ringer's 1,000 ML IV ONE
--- NOTE | 2025-01-07 08:04 | NUR ---
PT WAS BROUGHT BACK TO RECOVERY ROOM FOR PREOP FOR PACEMAKER PROCEDURE. PT WAS ASKED TO GET INTO A GOWN FOR HIS STERILE PROCEDURE. PT BECOMES UPSET, "I WILL NOT TAKE OFF MY PANTS. I SHOULDN'T HAVE TO TAKE MY PANTS OFF, WHEN YOUR PUTTING IT IN MY CHEST" IT WAS EXPLAINED TO PT THAT IT IS A STERILE PROCEDURE AND WOULD NEED TO COME OFF BEFORE ENTERING THE ELECTRIC LIFT TRUCK DRIVER. PT ON HIS PHONE, CALLING DR AL TO ASK WHY HE HAS TO TAKE OFF HIS PANTS. PT CONTINUES TO BE AGITATED, YELLING AT STAFF. SECURITY WAS CALLED. THEY ARE ON STANDBY. DR AL WAS UNAVAILABLE. AFTER EXPLAINING IN MORE DETAIL, PT AGREES TO WEARING SCRUB PANTS.
[2025-01-07 08:12] VITALS: BP 118/85
--- NOTE | 2025-01-07 08:12 | NUR ---
PT ADVISES HE NEEDS TO BE DONE AND HOME BY 11 AM. HE STS HE HAS SOMEONE COMING TO GET HIS CAR AND HE STILL NEEDS TO CLEAN IT OUT. PT ADVISED HE WOULDN'T BE ABLT TO BE FINISHED BY THAT TIME. THIS NURSE ASKED IF HE COULD RESCHEDULE HIS CAR. HE STS, "NO, I NEED TO BE OUT OF HERE BY 11." DR OBRIEN MADE AWARE AND WILL COME SPEAK WITH PATIENT WHEN HE IS AVAILABLE.
--- NOTE | 2025-01-07 09:30 | NUR ---
DR OBRIEN IN ROOM DISCUSSING PLAN OF CARE. PT ADVISED HE WOULD NOT BE ABLE TO CLEAN HIS CAR OUT TODAY AND WOULD NEED TO GET REST THE NEXT FEW DAYS. PT AGREES TO THIS AND TO PROCEED WITH THE PROCEDURE.
[2025-01-07] MEDS ORDERED: NS 500 ML IV ONE ×2 (09:41→09:49)
[2025-01-07] MEDS ORDERED: Midazolam HCl 1MG / ML 2ML Vial ONE ×3 (09:41→11:23)
[2025-01-07] MEDS ORDERED: NS 1,000 ML IV ONE (09:41)
[2025-01-07] MEDS ORDERED: Heparin Sodium 1000 Units/ML 10ML MDV ONE (09:41)
[2025-01-07] MEDS ORDERED: FentaNYL Citrate 50 MCG/ML 2 ML Injection ONE ×2 (09:41→11:24)
[2025-01-07] MEDS ORDERED: NS 250 ML IV ONE (09:41)
--- NOTE | 2025-01-07 09:50 | NUR ---
PT TELLS THIS NURSE ONCE THIS PROCEDURE IS DONE THAT HE WAS LEAVING. HE WASN'T GOING TO WAIT AFTER IN RECOVERY. PT ADVISED HE WOULD NEED TO STAY UNTIL HE IS SAFE TO BE DISCHARGED. PT BECOMES AGGITATED AGAIN, STATES, "NO, I TOLD YOU I'M LEAVING SOON I AM DONE." DR OBRIEN MADE AWARE. TO ROOM DISCUSSING THE PLAN OF CARE AGAIN. PT AGREES TO PROCEDURE AND TO BE COMPLIANT WITH DISCHARGE INSTRUCTIONS.
[2025-01-07] MEDS ORDERED: CeFAZolin Sodium 2,000 MG VIAL ONE (09:52)
[2025-01-07] MEDS ORDERED: CeFAZolin Sodium 1000 mg Vial ONE (09:52)
[2025-01-07] MEDS ORDERED: NS 100 ML IV ONE (09:55)
--- NOTE | 2025-01-07 10:20 | NUR ---
PT ON PHONE, STATING HE WANTS TO LEAVE NOW. "I'M TIRED OF WAITING. WHY CAN'T PEOPLE BE ON TIME? I HAD TO BE ON TIME." THIS NURSE EXPLAINS TO PATIENT THAT WE HAD A FEW EMERGENCIES THIS MORNING AND WE'RE SORRY FOR HIS WAIT. PT'S MOTHER COMES IN TO GET HIM AND TAKE HIM HOME. PT AGREES TO STAY FOR PROCEDURE.
--- NOTE | 2025-01-07 10:22 | NUR ---
PT TO PIPE MACHINE OPERATOR FOR PROCEDURE.
[2025-01-07] MEDS ORDERED: Ondansetron HCl 2 MG / ML 2ML Vial ONE (10:35)
--- NOTE | 2025-01-07 13:16 | NUR ---
PT TO IMAGING FOR CHEST XRAY
--- NOTE | 2025-01-07 13:22 | NUR ---
PT BACK IN RECOVERY ROOM. ICE PACK APPLIED TO R CHEST WALL AT INCISION. NO BLEEDING NOTED. VSS. NADN. PT OFFERED LUNCH AND DRINK, HE DECLINED. PT MOTHER BACK TO ROOM, PT STILL REFUSING FOOD UNTIL HE GETS HOME. PT ON HIS PHONE, APPEARS TO BE RESTING COMFORTABLY.
[2025-01-07 13:31] VITALS: BP 131/104
--- NOTE | 2025-01-07 13:50 | NUR ---
PT STARTS TO TAKE OFF HIS FINGER PROBE AND REMOVES THE ICE. STS, "I'M DONE HERE" PT STARTS RIPPING OFF HIS CARDIAC LEADS AND TAKES BP CUFF OFF. THIS NURSE, ATTEMPTED TO DE-ESCULATE THE PATIENT. I ADVISED HIM I NEEDED TO REMOVE HIS IV FROM HIS R AC. SECURITY WAS CALLED. MORE STAFF IN THE ROOM. PT STS, "NO YOU WILL NOT TOUCH ME. I'LL DO IT" PT RIPS OUT HIS IV AND THROWS IT ON THE GROUND. PT WAS ASKED IF WE COULD COBAN HIS IV SITE. HE REFUSES. PT STARTS LIFTING HIS BACKPACK AND PUTTING HIS CLOTHES ON. PT ADVISED NOT TO LIFT WITH HIS RIGHT ARM D/T THE PACEMAKER IMPLANT. HE'S YELLS AGAIN, "DON'T TELL ME WHAT THE FUCK TO DO. YOU'RE AFFECTING MY PTSD AND YOU WILL CAUSE ME TO HAVE A HEART ATTACK." PT FULLY DRESSED. HIS MOTHER LEFT TO THE HALLWAY WHEN PT FIRST STARTED TO YELL. MOTHER STATES, "I CAN'T DO THIS WITH YOU" PT YELLING AT STAFF, "YOU ARE ALL A BUNCH OF FAGGOTS, FUCK OFF" PT LEAVES THE RECOVERY ROOM AND KICKS THE WALL OUT IN THE HALLWAY. HIS MOTHER WAS GIVEN HIS DISCHARGE PAPERWORK AND INSTRUCTIONS GIVEN. PT LEFT DOWN THE HALLWAY AND EXITS THE HOSPITAL.
== END 2025-01-07 15:35 | disposition home or self-care (01) ==
LOC: MHTC 07:49
DX: R00.1 Bradycardia, unspecified (principal); R55 Syncope and collapse; I25.10 Atherosclerotic heart disease of native coronary artery without angina pectoris; E78.5 Hyperlipidemia, unspecified; G47.33 Obstructive sleep apnea (adult) (pediatric); Z79.02 Long term (current) use of antithrombotics/antiplatelets; Z79.899 Other long term (current) drug therapy
CPT/HCPCS: 33208; 71046; 99152; 99153; C1785; C1894; C1898; J0690; J1644; J2250; J2405; J3010; J7030; J7040; J7050; Q9967

== ENCOUNTER 2025-01-17 11:22 | Emergency (ER) | payer OTHER ==
[~2025-01-17] VITALS: Ht 177.8 cm; Wt 85.3 kg
[2025-01-17 11:37] VITALS: BP 128/88
[2025-01-17] MEDS ORDERED: Famotidine 10 MG/ML 2ML Vial IV ONE ×2 (11:55→13:40)
[2025-01-17] MEDS ORDERED: Haloperidol Lactate Inj. 5 MG/ML Injection IV ONE (11:55)
[2025-01-17] MEDS ORDERED: Morphine Sulfate 4 MG/1 ML Injection IV ONE (11:55)
[2025-01-17] MEDS ORDERED: Lactated Ringer's 1,000 ML IV ONE (11:55)
[2025-01-17 12:19] LABS: Albumin, Blood 3.2 g/dL (3.4-5.0); Albumin/Globulin Ratio 0.7 (0.8-1.8); Bilirubin, Total 0.5 mg/dL (0.1-1.0); Bun/Creatinine Ratio 14.6 (12.0-20.0); Calcium, Blood 8.9 mg/dL (8.5-10.1); Creatinine, Blood 0.75 mg/dL (0.60-1.20); Globulin, Blood 4.6 g/dL (2.2-4.0); Potassium, Blood 3.4 mmol/L (3.5-5.5); Total Protein, Blood 7.8 g/dL (6.4-8.2)
[2025-01-17 13:16] LABS: BASOPHILS ABSOLUTE AUTO 0.04 K/mm3 (0.00-0.23); BASOPHILS PERCENT AUTO 0 % (0-2); EOSINOPHILS ABSOLUTE AUTO 0.05 K/mm3 (0.00-0.68); EOSINOPHILS PERCENT AUTO 1 % (0-6); Hematocrit 36.4 % (37.0-53.0); Hemoglobin 10.8 g/dL (13.5-17.5); IMMATURE GRAN ABSOLUTE AUTO 0.08 K/mm3 (0.00-0.10); IMMATURE GRAN PERCENT AUTO 1 % (0-1); LYMPHOCYTES ABSOLUTE AUTO 1.28 K/mm3 (0.84-5.20); LYMPHOCYTES PERCENT AUTO 12 % (21-46); MONOCYTES ABSOLUTE AUTO 0.58 K/mm3 (0.16-1.47); MONOCYTES PERCENT AUTO 6 % (4-13); Mean Corpuscular HGB 21.1 pg (26.0-34.0); Mean Corpuscular HGB Conc 29.7 g/dL (31.5-36.5); Mean Corpuscular Volume 71 fL (80-100); NEUTROPHILS ABSOLUTE AUTO 8.54 K/mm3 (1.96-9.15); NEUTROPHILS PERCENT AUTO 81 % (41-73); RDW Coefficient Variation 17.1 % (11.7-14.2); RDW Standard Deviation 42.4 fL (35.1-46.3); Red Blood Cell Count 5.11 M/mm3 (4.30-5.90); White Blood Cell Count 10.57 K/mm3 (4.00-11.30)
[2025-01-17] MEDS ORDERED: Mag Hydrox/AL Hydrox/Simeth 30 ML UDC PO ONE (13:40)
[2025-01-17 13:46] LABS: Platelet Count 260 K/mm3 (150-400)
[2025-01-17 13:47] LABS: Mean Platelet Volume 10.6 fL (9.1-12.4)
[2025-01-17] MEDS ORDERED: PROM12.5S PR (14:07)
[2025-01-17] MEDS ORDERED: METO10 PO (14:07)
[2025-01-17] MEDS ORDERED: FAMO20 PO (14:07)
[2025-01-17] MEDS ORDERED: ONDA4ODT MM (14:07)
[2025-01-17] MEDS ORDERED: Potassium Chloride 20 MEQ TabCR PO ONE (14:10)
== END 2025-01-17 14:19 | disposition home or self-care (01) ==
LOC: ER 11:22
PROVIDERS: Physician Assistant
DX: R11.2 Nausea with vomiting, unspecified (principal); R10.13 Epigastric pain; E86.0 Dehydration; E87.6 Hypokalemia; F12.90 Cannabis use, unspecified, uncomplicated; I25.10 Atherosclerotic heart disease of native coronary artery without angina pectoris; I25.2 Old myocardial infarction; F84.0 Autistic disorder; E78.5 Hyperlipidemia, unspecified; K21.9 Gastro-esophageal reflux disease without esophagitis; Z87.19 Personal history of other diseases of the digestive system; Z88.8 Allergy status to other drugs, medicaments and biological substances; Z79.899 Other long term (current) drug therapy; Z87.891 Personal history of nicotine dependence
CPT/HCPCS: 71046; 74177; 80053; 83690; 83735; 85025; 93005; 93010; 96361; 96374-59; 96375; 99284-25; A9270; J1630; J2270; J7120; Q9967

== ENCOUNTER 2025-01-20 04:11 | Emergency (ER) | payer OTHER ==
[~2025-01-20] VITALS: Ht 177.8 cm; Wt 85.3 kg
[~2025-01-20 04:11] MED LIST changes: +METO10 PO; +PROM12.5S PR
[2025-01-20 05:30] LABS: Albumin, Blood 3.5 g/dL (3.4-5.0); Albumin/Globulin Ratio 0.8 (0.8-1.8); Bilirubin, Total 0.5 mg/dL (0.1-1.0); Bun/Creatinine Ratio 15.3 (12.0-20.0); Calcium, Blood 8.8 mg/dL (8.5-10.1); Creatinine, Blood 0.78 mg/dL (0.60-1.20); Globulin, Blood 4.3 g/dL (2.2-4.0); Potassium, Blood 3.4 mmol/L (3.5-5.5); Total Protein, Blood 7.8 g/dL (6.4-8.2)
[2025-01-20 05:31] LABS: BASOPHILS ABSOLUTE AUTO 0.04 K/mm3 (0.00-0.23); BASOPHILS PERCENT AUTO 0 % (0-2); EOSINOPHILS PERCENT AUTO 0 % (0-6); Hematocrit 34.6 % (37.0-53.0); Hemoglobin 10.2 g/dL (13.5-17.5); IMMATURE GRAN ABSOLUTE AUTO 0.04 K/mm3 (0.00-0.10); IMMATURE GRAN PERCENT AUTO 0 % (0-1); LYMPHOCYTES ABSOLUTE AUTO 1.22 K/mm3 (0.84-5.20); LYMPHOCYTES PERCENT AUTO 12 % (21-46); MONOCYTES ABSOLUTE AUTO 0.45 K/mm3 (0.16-1.47); MONOCYTES PERCENT AUTO 4 % (4-13); Mean Corpuscular HGB 21.5 pg (26.0-34.0); Mean Corpuscular HGB Conc 29.5 g/dL (31.5-36.5); Mean Corpuscular Volume 73 fL (80-100); Mean Platelet Volume 10.3 fL (9.1-12.4); NEUTROPHILS ABSOLUTE AUTO 8.63 K/mm3 (1.96-9.15); NEUTROPHILS PERCENT AUTO 83 % (41-73); Platelet Count 361 K/mm3 (150-400); RDW Coefficient Variation 17.1 % (11.7-14.2); RDW Standard Deviation 43.3 fL (35.1-46.3); Red Blood Cell Count 4.74 M/mm3 (4.30-5.90); White Blood Cell Count 10.38 K/mm3 (4.00-11.30)
[2025-01-20] MEDS ORDERED: Lidocaine 2% Viscous Soln 15 ML UDC PO ONE (05:35)
[2025-01-20] MEDS ORDERED: Pantoprazole Sodium 40 MG Injection IV ONE (05:35)
[2025-01-20] MEDS ORDERED: Ketorolac Tromethamine 30mg Vial IV ONE (05:35)
[2025-01-20] MEDS ORDERED: Mag Hydrox/AL Hydrox/Simeth 30 ML UDC PO ONE (05:35)
[2025-01-20 06:35] VITALS: BP 148/92
== END 2025-01-20 06:40 | disposition home or self-care (01) ==
LOC: ER 04:11
PROVIDERS: Emergency Medicine
DX: R10.13 Epigastric pain (principal); F41.9 Anxiety disorder, unspecified; K21.9 Gastro-esophageal reflux disease without esophagitis; E78.5 Hyperlipidemia, unspecified; I25.2 Old myocardial infarction; I25.10 Atherosclerotic heart disease of native coronary artery without angina pectoris; F84.0 Autistic disorder; F25.9 Schizoaffective disorder, unspecified; D50.9 Iron deficiency anemia, unspecified; G47.33 Obstructive sleep apnea (adult) (pediatric); Z87.11 Personal history of peptic ulcer disease; Z87.891 Personal history of nicotine dependence; Z88.8 Allergy status to other drugs, medicaments and biological substances; Z95.5 Presence of coronary angioplasty implant and graft; Z79.899 Other long term (current) drug therapy; Z79.02 Long term (current) use of antithrombotics/antiplatelets
CPT/HCPCS: 71045; 80053; 83690; 85025; 93005; 93010; 96374; 96375; 99284-25; A9270; J1885; J2470

== ENCOUNTER 2025-03-08 02:35 | Day surgery (SDC) | payer OTHER ==
[~2025-03-08 02:35] MED LIST changes: +Sod Ferric Gluc Complx/Sucrose 125 MG in NS 100 ML IV SCH
[2025-03-08 10:07] VITALS: BP 121/83
[2025-03-08] MEDS ORDERED: DESV50 PO (10:07)
== END 2025-03-08 11:20 | disposition home or self-care (01) ==
LOC: ATC 02:35
DX: D50.0 Iron deficiency anemia secondary to blood loss (chronic) (principal); E78.5 Hyperlipidemia, unspecified; I25.10 Atherosclerotic heart disease of native coronary artery without angina pectoris; G47.33 Obstructive sleep apnea (adult) (pediatric); Z87.891 Personal history of nicotine dependence; Z79.899 Other long term (current) drug therapy; Z95.5 Presence of coronary angioplasty implant and graft
CPT/HCPCS: 96365; J2916

== ENCOUNTER 2025-03-16 02:57 | Day surgery (SDC) | payer OTHER ==
[~2025-03-16 02:57] MED LIST changes: +DESV50 PO
[2025-03-16 09:16] VITALS: BP 104/73
== END 2025-03-16 10:22 | disposition home or self-care (01) ==
LOC: ATC 02:57
DX: D50.0 Iron deficiency anemia secondary to blood loss (chronic) (principal); F12.188 Cannabis abuse with other cannabis-induced disorder; E78.5 Hyperlipidemia, unspecified; F25.9 Schizoaffective disorder, unspecified; I25.10 Atherosclerotic heart disease of native coronary artery without angina pectoris; Z79.899 Other long term (current) drug therapy
CPT/HCPCS: 96365; J2916

== ENCOUNTER 2025-03-23 06:33 | Day surgery (SDC) | payer OTHER ==
[2025-03-23 11:56] VITALS: BP 116/77
== END 2025-03-23 13:08 | disposition home or self-care (01) ==
LOC: ATC 06:33
DX: D50.0 Iron deficiency anemia secondary to blood loss (chronic) (principal); E78.5 Hyperlipidemia, unspecified; I25.10 Atherosclerotic heart disease of native coronary artery without angina pectoris; G47.33 Obstructive sleep apnea (adult) (pediatric); Z95.5 Presence of coronary angioplasty implant and graft; Z79.899 Other long term (current) drug therapy
CPT/HCPCS: 96365; J2916

== ENCOUNTER 2025-04-06 10:55 | Day surgery (SDC) | payer OTHER ==
[~2025-04-06] VITALS: Ht 180.3 cm; Wt 85.3 kg
[~2025-04-06 10:55] MED LIST changes: +Lactated Ringer's 1,000 ML IV ONE; -Sod Ferric Gluc Complx/Sucrose 125 MG in NS 100 ML IV SCH
[2025-04-06] MEDS ORDERED: Lactated Ringer's 1,000 ML IV ONE (11:55)
[2025-04-06] MEDS ORDERED: Midazolam HCl 1MG / ML 2ML Vial ONE (12:09)
[2025-04-06] MEDS ORDERED: propofoL 50 ML IV ONE (12:12)
[2025-04-06] MEDS ORDERED: Lidocaine HCl 4% 5 ML SDA ONE (12:13)
[2025-04-06 13:23] VITALS: BP 112/87
== END 2025-04-06 13:12 | disposition home or self-care (01) ==
LOC: ORSCSDS 10:55
PROVIDERS: Internal Medicine Gastroenterology
PROC: 0DB58ZX Excision of Esophagus, Via Natural or Artificial Opening Endoscopic, Diagnostic (ICD-10-PCS; principal; 2025-04-06 12:15)
DX: K21.9 Gastro-esophageal reflux disease without esophagitis (principal); K22.10 Ulcer of esophagus without bleeding; I25.2 Old myocardial infarction; I25.10 Atherosclerotic heart disease of native coronary artery without angina pectoris; E78.5 Hyperlipidemia, unspecified; Z95.0 Presence of cardiac pacemaker; Z79.899 Other long term (current) drug therapy
CPT/HCPCS: 88305; 88312; J2003; J2250; J2704; J7120

== ENCOUNTER 2025-05-11 03:01 | Day surgery (SDC) | payer OTHER ==
[~2025-05-11 03:01] MED LIST changes: -Lactated Ringer's 1,000 ML IV ONE; +Sod Ferric Gluc Complx/Sucrose 125 MG in NS 100 ML IV SCH
[2025-05-11 08:05] VITALS: BP 110/73
== END 2025-05-11 09:11 | disposition home or self-care (01) ==
LOC: ATC 03:01
DX: D50.0 Iron deficiency anemia secondary to blood loss (chronic) (principal); I25.10 Atherosclerotic heart disease of native coronary artery without angina pectoris; Z88.8 Allergy status to other drugs, medicaments and biological substances; Z79.899 Other long term (current) drug therapy
CPT/HCPCS: 96365; J2916

== ENCOUNTER 2025-05-25 01:26 | Day surgery (SDC) | payer OTHER ==
[2025-05-25 14:20] VITALS: BP 118/83
== END 2025-05-25 15:20 | disposition home or self-care (01) ==
LOC: ATC 01:26
DX: D50.0 Iron deficiency anemia secondary to blood loss (chronic) (principal); I25.10 Atherosclerotic heart disease of native coronary artery without angina pectoris; F25.9 Schizoaffective disorder, unspecified; Z88.8 Allergy status to other drugs, medicaments and biological substances; Z79.899 Other long term (current) drug therapy
CPT/HCPCS: 96365; J2916

== ENCOUNTER 2025-06-02 14:56 | Day surgery (SDC) | payer OTHER ==
[2025-06-02 15:03] VITALS: BP 110/69
== END 2025-06-02 16:10 | disposition home or self-care (01) ==
LOC: ATC 14:56
DX: D50.0 Iron deficiency anemia secondary to blood loss (chronic) (principal); K20.90 Esophagitis, unspecified without bleeding; F25.9 Schizoaffective disorder, unspecified; E78.5 Hyperlipidemia, unspecified; I25.10 Atherosclerotic heart disease of native coronary artery without angina pectoris; G47.33 Obstructive sleep apnea (adult) (pediatric); Z79.899 Other long term (current) drug therapy; Z88.8 Allergy status to other drugs, medicaments and biological substances; Z95.5 Presence of coronary angioplasty implant and graft
CPT/HCPCS: 96365; J2916

== ENCOUNTER 2025-06-09 08:34 | Day surgery (SDC) | payer OTHER ==
[2025-06-09 10:07] VITALS: BP 106/75
== END 2025-06-09 11:12 | disposition home or self-care (01) ==
LOC: ATC 08:34
DX: D50.0 Iron deficiency anemia secondary to blood loss (chronic) (principal); Z87.891 Personal history of nicotine dependence; Z79.899 Other long term (current) drug therapy; Z88.8 Allergy status to other drugs, medicaments and biological substances
CPT/HCPCS: 96365; J2916

== ENCOUNTER 2025-08-06 18:04 | Emergency (ER) | payer OTHER ==
[~2025-08-06] VITALS: Ht 177.8 cm; Wt 75.3 kg
[~2025-08-06 18:04] MED LIST changes: -Sod Ferric Gluc Complx/Sucrose 125 MG in NS 100 ML IV SCH
[2025-08-06 18:40] LABS: BASOPHILS ABSOLUTE AUTO 0.03 K/mm3 (0.00-0.23); BASOPHILS PERCENT AUTO 0 % (0-2); EOSINOPHILS ABSOLUTE AUTO 0.00 K/mm3 (0.00-0.68); EOSINOPHILS PERCENT AUTO 0 % (0-6); Hematocrit 50.5 % (37.0-53.0); Hemoglobin 17.1 g/dL (13.5-17.5); IMMATURE GRAN ABSOLUTE AUTO 0.02 K/mm3 (0.00-0.10); IMMATURE GRAN PERCENT AUTO 0 % (0-1); LYMPHOCYTES ABSOLUTE AUTO 1.04 K/mm3 (0.84-5.20); LYMPHOCYTES PERCENT AUTO 10 % (21-46); MONOCYTES ABSOLUTE AUTO 0.48 K/mm3 (0.16-1.47); MONOCYTES PERCENT AUTO 5 % (4-13); Mean Corpuscular HGB Conc 33.9 g/dL (31.5-36.5); Mean Corpuscular Volume 88 fL (80-100); NEUTROPHILS ABSOLUTE AUTO 8.57 K/mm3 (1.96-9.15); NEUTROPHILS PERCENT AUTO 85 % (41-73); NRBC ABSOLUTE 0.00 K/mm3 (0.00-0.02); NRBC Auto 0.0 /100 WBC (0.0-0.2); Platelet Count 230 K/mm3 (150-400); RDW Coefficient Variation 13.9 % (11.7-14.2); RDW Standard Deviation 44.6 fL (35.1-46.3)
[2025-08-06 18:53] LABS: Alanine Aminotransfer (ALT/SGP 19.0 U/L (12-78); Albumin, Blood 4.1 g/dL (3.4-5.0); Albumin/Globulin Ratio 1.1 (0.8-1.8); Anion Gap 9.0 mmol/L (3-11); Aspartate Aminotrans (AST/SGOT 13.0 U/L (12-37); Bilirubin, Total 0.9 mg/dL (0.1-1.0); Blood Urea Nitrogen 8.0 mg/dL (8-24); CO2, Blood 25.0 mmol/L (21-32); Calcium, Blood 9.5 mg/dL (8.5-10.1); Chloride, Blood 106.0 mmol/L (98-108); Creatinine, Blood 0.86 mg/dL (0.60-1.20); Globulin, Blood 3.8 g/dL (2.2-4.0); Glucose, Blood 125.0 mg/dL (70-99); Potassium, Blood 3.7 mmol/L (3.5-5.5); Sodium, Blood 136.0 mmol/L (136-145); Total Protein, Blood 7.9 g/dL (6.4-8.2)
[2025-08-06] MEDS ORDERED: Ondansetron HCl 2 MG / ML 2ML Vial IV STA (21:02)
[2025-08-06] MEDS ORDERED: NS 1,000 ML BAG IR STA (21:03)
[2025-08-06] MEDS ORDERED: Ketorolac Tromethamine 15mg Vial IV STA (21:03)
[2025-08-06] MEDS ORDERED: NS 1,000 ML IV ONE (21:06)
[2025-08-06] MEDS ORDERED: Metoclopramide HCl 5MG / ML 2ML Vial IV ONE (21:20)
[2025-08-06] MEDS ORDERED: Pantoprazole Sodium 40 MG Injection IV ONE (21:20)
[2025-08-06 22:32] LABS: Source, Urine Clean Catch
[2025-08-06 22:49] LABS: Bilirubin, Urine Neg (Neg); Glucose Qualitative, Urine Neg (Neg); Ketones, Urine 4+ (Neg); Leukocyte Esterase, Urine 1+ (Neg); Protein, Urine 2+ (Neg); Specific Gravity, Urine 1.015 (1.003-1.022); Urobilinogen, Urine 3+ (Normal)
[2025-08-06 23:09] LABS: Color, Urine Amber (P-Yellow)
[2025-08-06 23:10] LABS: Red Blood Cells, Urine 0-2 /hpf (0-2)
[2025-08-06 23:30] VITALS: BP 117/87
[2025-08-06] MEDS ORDERED: ONDA4ODT MM (23:58)
[2025-08-06] MEDS ORDERED: PANT40 PO (23:59)
== END 2025-08-07 00:06 | disposition home or self-care (01) ==
LOC: ER 18:04
PROVIDERS: Emergency Medicine; Student in an Organized Health Care Education/Training Program
DX: R10.13 Epigastric pain (principal); R11.2 Nausea with vomiting, unspecified; F17.200 Nicotine dependence, unspecified, uncomplicated; Z79.899 Other long term (current) drug therapy; F43.10 Post-traumatic stress disorder, unspecified; Z95.0 Presence of cardiac pacemaker
CPT/HCPCS: 71046; 80053; 81001; 83690; 84484; 85025; 93005; 93010; 96374; 96375; 99284-25; J1885; J2405; J2470; J2765; J7030

== ENCOUNTER 2025-10-21 11:50 | Day surgery (SDC) | payer OTHER ==
[~2025-10-21] VITALS: Ht 177.8 cm; Wt 77.1 kg
[2025-10-21] MEDS ORDERED: PLAVIX75 MG PO (12:18)
[2025-10-21] MEDS ORDERED: CARV25 (12:20)
[2025-10-21] MEDS ORDERED: Midazolam HCl 1MG / ML 2ML Vial ONE (13:19)
[2025-10-21] MEDS ORDERED: Benzocaine Oral Spray 0.5ML UD ONE (13:20)
[2025-10-21 14:01] VITALS: BP 107/81
== END 2025-10-21 14:23 | disposition home or self-care (01) ==
LOC: ORSCSDS 11:50
PROVIDERS: Internal Medicine Gastroenterology
PROC: 0DJ08ZZ Inspection of Upper Intestinal Tract, Via Natural or Artificial Opening Endoscopic (ICD-10-PCS; principal; 2025-10-21 14:15)
DX: K21.00 Gastro-esophageal reflux disease with esophagitis, without bleeding (principal); K44.9 Diaphragmatic hernia without obstruction or gangrene; Z95.0 Presence of cardiac pacemaker; I25.2 Old myocardial infarction; I25.10 Atherosclerotic heart disease of native coronary artery without angina pectoris; E78.5 Hyperlipidemia, unspecified; G47.33 Obstructive sleep apnea (adult) (pediatric); F25.9 Schizoaffective disorder, unspecified; Z79.899 Other long term (current) drug therapy
CPT/HCPCS: A9270; J2250; J2704; J7120